=== PATIENT | male | born 1995 | race Two or more races ===

== ENCOUNTER 2022-06-23 07:24 | Outpatient (REF) | payer OTHER, SELFPAY ==
--- NOTE | ~2022-06-23 | XR_ITS ---
EXAMINATION: XR SHOULDER, RIGHT CLINICAL INFORMATION: Right shoulder pain COMPARISON: None TECHNIQUE: Right shoulder is imaged in 3 views. FINDINGS: No fracture, dislocation, destructive process, or arthropathy. Acromioclavicular alignment normal. No visible rotator cuff calcifications. Normal bony mineralization. XR/XR shoulder RT min 2V IMPRESSION: Normal right shoulder.
== END 2022-06-23 07:25 | disposition home or self-care (01) ==
LOC: HO.HOSX 07:24
PROVIDERS: Visit Provider Physician Assistant
DX: S46.811A Strain of other muscles, fascia and tendons at shoulder and upper arm level, right arm, initial encounter (principal); M25.511 Pain in right shoulder; G89.29 Other chronic pain; M77.8 Other enthesopathies, not elsewhere classified; X58.XXXA Exposure to other specified factors, initial encounter; Y93.9 Activity, unspecified; Y92.9 Unspecified place or not applicable; Y99.9 Unspecified external cause status
CPT/HCPCS: 73030; 99202

== ENCOUNTER 2022-08-09 11:00 | Outpatient (RCR) | payer OTHER, SELFPAY ==
--- NOTE | 2022-07-20 10:32 | MHC.PT.EP ---
[facility] [place] [facility] [place] [facility] [address] Omar Calderon [address] [phone] F: [phone] F: [phone] F: [phone] F: [phone] Physical Therapy Plan of Care Date of Evaluation: Date of Surgery: Diagnosis: R shoulder strain/ tendonitis. Assessment: Pt is a 26 y/o RHD male referred to PT for eval and treat of R shoulder strain/ tendonitis who presents with R shoulder dysfunction resulting in pain after work and recreation activities, placing objects on high shelves, lifting and carrying objects of weight, and reaching his back and neck for hygiene and dressing secondary to decreased R shoulder strength compared to L, mild decreased ROM compared to L, decreased scapular posture, increased cervical flexion with functional lifting and gym exercise, increased R upper trap tissue tension, and pain. Pt is deemed an appropriate candidate to receive skilled PT in order to address his physical limitations to improve his functional ability. Frequency and Duration: The patient will be seen 2 x/ wk x 4 wks. Short Term Goals: Initiate HEP. improve baseline pain to < 3/10; initial 5/10. Scanning Clerk Goals: I with HEP and gym exercise posture/ form. Pt will report no disturbed sleep after work day. Pt will report no longer difficult to place object on high shelf; initial: 6/10 difficulty. Improve scapular retraction strength by at least 1/2 MMT grade Treatment Plan: Modalities to reduce pain, spasms and effusion. Manual therapy to restore motion and function. Therapeutic exercise to improve strength and flexibility. Neuromuscular re-education for posture and balance. Therapeutic activities to return to functional activities of daily living. Electronically signed by: Aba Celaya PT Please sign and return to therapist. Thank you for your referral.
--- NOTE | 2022-11-22 08:09 | MHC.PT.DC ---
[facility] [place] [facility] [place] [facility] [place] [facility] [address] Omar Calderon [address] [phone] F: [phone] F: [phone] F: [phone] F: [phone] Physical Therapy Discharge Report Diagnosis: R shoulder strain/ tendonitis. Date of Surgery: Date of Evaluation: 07/16/22 Date of Discharge: 10/06/22 Treatments to Date: 5 Cancellations to Date: No Shows to Date: Discharge Status: Patient Elected to Stop Discharge Summary: Reports some improvement and would like to continue 2 weeks. Good jemma for his program; improved postural awareness. no adverse effects. Electronically signed by: Aba Celaya Please sign and return to therapist. Thank you for your referral.
== END 2022-11-22 08:09 | disposition home or self-care (01) ==
LOC: HO.PTCHIC 11:00
PROVIDERS: Visit Provider Physician Assistant
DX: S46.811A Strain of other muscles, fascia and tendons at shoulder and upper arm level, right arm, initial encounter (principal); M77.8 Other enthesopathies, not elsewhere classified
CPT/HCPCS: 97110; 97140; 97161